=== PATIENT | female | born 1955 | race Caucasian/White ===

== ENCOUNTER 2022-03-08 10:22 | Emergency (ER) | payer OTHER ==
[~2022-03-08] VITALS: Ht 149.9 cm; Wt 51.3 kg
[2022-03-08 10:26] VITALS: BP 150/72
--- NOTE | 2022-03-08 12:05 | NUR ---
66/F PRESENTS TO ED WITH C/O SUBJECTIVE FEVER, CHILLS, HEADACHE AND COUGH SINCE YESTEDAY. STATES SHE WAS EXPOSED TO [facility] [employer] [employer] 2 DAYS AGO. REPORTS TAKING TYLENOL WITH MILD RELIEF.
[2022-03-08] MEDS ORDERED: IBUP-2213 PO (12:58)
[2022-03-08] MEDS ORDERED: PROM118S5 PO (12:58)
[2022-03-08] MEDS ORDERED: NIRM1TAB PO (12:58)
[2022-03-08] MEDS ORDERED: ONDA-188 PO (12:58)
[2022-03-08] MEDS ORDERED: IMO2 PO (12:58)
[2022-03-08 13:11] VITALS: BP 135/75
--- NOTE | 2022-03-08 13:11 | NUR ---
Patient discharged with v/s stable. Written and verbal after care instructions ABOUT COVID-19 AND VIRAL ILLNESS given and explained. Patient alert, oriented and verbalized understanding of instructions. Ambulatory with steady gait. All questions addressed prior to discharge. ID band removed. Patient advised to follow up with PMD. Rx of LOPERAMIDE, PAXLOVID CO-PACK, ZOFRFAN AND PROMETHAZINE given. Patient educated on indication of medication including possible reaction and side effects. Opportunity to ask questions provided and answered.
== END 2022-03-08 13:11 | disposition home or self-care (01) ==
LOC: MED 10:22
DX: B34.9 Viral infection, unspecified (principal); R03.0 Elevated blood-pressure reading, without diagnosis of hypertension
CPT/HCPCS: 99283